=== PATIENT | male | born 1985 | race Caucasian/White ===

== ENCOUNTER 2024-08-17 15:09 | Emergency (ER) | payer SELFPAY ==
[~2024-08-17] VITALS: Ht 180.3 cm; Wt 82.0 kg
[2024-08-17 15:11] VITALS: O2SAT 99
[2024-08-17 15:16] VITALS: BP 143/96; PULSE 117; RESP 18; TEMP 98.4; O2SAT 99
[2024-08-17 15:40] LABS: BASOPHILS % 0.5 % (0.0-2.0); HEMATOCRIT. 45.8 % (42.0-52.0); HEMOGLOBIN. 15.4 g/dL (14.0-18.0); LYMPHOCYTES % 35.6 % (20.0-50.0); MEAN CORPUSCULAR HGB CONC 33.6 g/dL (31.0-37.0); MEAN CORPUSCULAR VOLUME 83.3 fL (80.0-94.0); MEAN PLATELET VOLUME 7.9 fl (7.4-10.4); MONOCYTES % 5.1 % (2.0-8.0); NEUTROPHILS % 54.8 % (40.0-76.0); PLATELET 247 x1000/uL (130-400); RED CELL DISTRIBUTION WIDTH 14.1 % (11.6-14.6); WHITE BLOOD COUNT 8.8 x1000/uL (4.5-11.0)
[2024-08-17 15:44] LABS: CHLORIDE 110 mEq/L (98-107); POTASSIUM 3.9 mEq/L (3.5-5.1); SODIUM 142 mEq/L (136-145)
[2024-08-17 15:45] LABS: CARBON DIOXIDE 24 mEq/L (21-32)
[2024-08-17 15:46] LABS: CALCIUM 9.4 mg/dL (8.7-10.4)
[2024-08-17 15:50] LABS: CREATININE 1.1 mg/dL (0.6-1.3); GLUCOSE 134 mg/dL (70-105); UREA NITROGEN BLOOD 11 mg/dL (9-23)
[2024-08-17] MEDS ORDERED: SULF1TAB48 MT (21:08)
== END 2024-08-17 21:25 | disposition home or self-care (01) ==
LOC: ER 15:09
DX: R21 Rash and other nonspecific skin eruption (principal)
CPT/HCPCS: 36415; 80048; 85025; 99283